=== PATIENT | female | born 1940 ===

== ENCOUNTER 2020-12-27 15:16 | Emergency (ER) | payer MEDICARE ==
[~2020-12-27] VITALS: Ht 160 cm; Wt 61.1 kg
[2020-12-27 15:19] VITALS: BP 149/81
--- NOTE | 2020-12-27 18:28 | NUR ---
PHARMACEUTICAL BOTANIST: PT TO ROOM FROM LOBBY
== END 2020-12-27 20:43 | disposition home or self-care (01) ==
LOC: ED 19:50
DX: S62.612A Displaced fracture of proximal phalanx of right middle finger, initial encounter for closed fracture (principal); S62.614A Displaced fracture of proximal phalanx of right ring finger, initial encounter for closed fracture; S62.616A Displaced fracture of proximal phalanx of right little finger, initial encounter for closed fracture; S82.035A Nondisplaced transverse fracture of left patella, initial encounter for closed fracture; W18.30XA Fall on same level, unspecified, initial encounter; Y93.89 Activity, other specified; Y92.89 Other specified places as the place of occurrence of the external cause; Y99.8 Other external cause status
CPT/HCPCS: 29125; 99284